=== PATIENT | female | born 1975 | race Caucasian/White ===

== ENCOUNTER 2017-08-03 15:10 | Outpatient (CLI) | payer OTHER | END 2017-08-03 15:11 | disposition home or self-care (01) | LOC: BICULT 15:10 | PROVIDERS: ATTEND Specialist | DX: E03.9 Hypothyroidism, unspecified (principal); R94.6 Abnormal results of thyroid function studies; E04.1 Nontoxic single thyroid nodule; Z85.71 Personal history of Hodgkin lymphoma | CPT/HCPCS: 76536 ==

== ENCOUNTER 2018-09-18 07:24 | Outpatient (CLI) | payer OTHER ==
--- NOTE | 2018-09-18 07:46 | ULT ---
GALLBLADDER ULTRASOUND: HISTORY: Right upper quadrant abdominal pain FINDINGS: The liver demonstrates homogeneous echotexture without focal mass or intrahepatic biliary ductal dila tation. The patient is status postcholecystectomy. The right kidney and pancreas are normal. The common duct [id number] in diameter. No free fluid is seen in the Penaloza's pouch. IMPRESSION: Status post cholecystectomy, otherwise unremarkable exam
== END 2018-09-18 07:25 | disposition home or self-care (01) ==
LOC: BICULT 07:24
PROVIDERS: ATTEND Family Medicine
DX: R79.89 Other specified abnormal findings of blood chemistry (principal); Z90.49 Acquired absence of other specified parts of digestive tract
CPT/HCPCS: 76705

== ENCOUNTER 2018-10-02 07:45 | Outpatient (CLI) | payer OTHER ==
--- NOTE | 2018-10-02 08:13 | MMO ---
Bilateral MAMMO Bilat Screen [facility]. CLINICAL HISTORY: Patient is 42 years old and is seen for screening. The patient has no family history of breast cancer. The patient has a history of hodgkin's disease at age 16. VIEWS: The views performed were: bilateral craniocaudal with tomosynthesis and bilateral mediolateral oblique with tomosynthesis. FILMS COMPARED: The present examination has been compared to prior imaging studies performed at [facility] on 11/18/2015 and 09/30/2017. MAMMOGRAM FINDINGS: There are scattered fibroglandular densities. There are no suspicious masses, suspicious calcifications, or new areas of architectural distortion. IMPRESSION: THERE IS NO MAMMOGRAPHIC EVIDENCE OF MALIGNANCY. A ROUTINE FOLLOW-UP MAMMOGRAM IN 1 YEAR IS RECOMMENDED. THE RESULTS OF THIS EXAM WERE SENT TO THE PATIENT. ACR BI-RADS Category 1 - Negative MAMMOGRAPHY NOTE: 1. A negative mammogram report should not delay a biopsy if a dominant of clinically suspicious mass is present. 2. Approximately 10% to 15% of breast cancers are not detected by mammography. 3. Adenosis and dense breasts may obscure an underlying neoplasm. Reported by: KIRT WALLACE MD Electonically Signed: [id number]
== END 2018-10-02 07:46 | disposition home or self-care (01) ==
LOC: BICMAMMO 07:45
PROVIDERS: ATTEND Family Medicine
DX: Z12.31 Encounter for screening mammogram for malignant neoplasm of breast (principal); Z85.71 Personal history of Hodgkin lymphoma
CPT/HCPCS: 77063; 77067

== ENCOUNTER 2018-10-09 12:42 | Emergency (ER) | payer OTHER ==
[2018-10-09 13:39] LABS: #Basophils 0.1 thou/uL (0.0-0.2); #Eosinphils 0.2 thou/uL (0.0-0.7); #Lymphocytes 2.5 thou/uL (1.20-3.40); #Monocytes 0.7 thou/uL (0.11-0.59); #Neutrophils 7.1 thou/uL (1.40-6.50); %Basophils 0.7 % (0.0-1.0); %Eosinophils 2.2 % (0.0-10.0); %Lymphocytes 23.9 % (21.0-51.0); %Monocytes 6.3 % (0.0-10.0); Hemoglobin 13.5 g/dL (12.0-16.0); Mean Corpuscular HGB CONC 34.1 g/dL (32.0-36.0); Mean Platelet Volume 7.4 fL (7.4-10.4); Platelet Count 313 thou/uL (130-400); RBC Distribution Width 11.8 % (11.5-14.5); Red Blood Cell (RBC) Count 4.35 mill/uL (4.20-5.40); White Blood Cell (WBC) Count 10.5 thou/uL (4.8-10.8)
[2018-10-09 14:09] LABS: ALT (SGPT) 30 U/L (8-55); AST (SGOT) 37 U/L (5-34); Albumin 4.9 g/dL (3.5-5.0); Alkaline Phosphatase 87 U/L (40-150); Anion Gap 14 mmol/L (10-20); BUN (Urea Nitrogen) 16 mg/dL (7.0-18.7); Bilirubin, Total 0.4 mg/dL (0.2-1.2); Calc. Creatinine Clearance 0 mL/min (70-130); Calcium 10.3 mg/dL (7.8-10.44); Carbon Dioxide 24 mmol/L (22-29); Chloride 102 mmol/L (98-107); Estimated GFR-MDRD 73; Globulin 3.1 g/dL (2.4-3.5); Glucose 85 mg/dL (70-105); Potassium 3.7 mmol/L (3.5-5.1); Sodium 136 mmol/L (136-145)
== END 2018-10-09 15:14 | disposition home or self-care (01) ==
LOC: ERS 12:42
DX: R00.2 Palpitations (principal)
CPT/HCPCS: 36415; 80053; 84443; 85025; 93005

== ENCOUNTER 2019-11-14 10:34 | Outpatient (CLI) | payer OTHER ==
--- NOTE | 2019-11-14 13:30 | MRI ---
MRI of thecervical spine with and without contrast: 11/14/2019 COMPARISON:None available HISTORY:Neck pain, cervical pain, prior thyroid surgery TECHNIQUE: Multiplanar multisequence MR imaging of thecervical spine with and without contrast Findings:The sagittal STIR imaging demonstrates no focal area of osseous marrow edema. There is minim al increased STIR signal in the region of the interspinous ligaments anteriorly at C3-4, C4-5, and C5-6. There is a focal area of increased T2 signal within the subcutaneous fat posteriorly at the C5- 6 axial level. No significant anterolisthesis or retrolisthesis is noted within the cervical spine. There is degener ative change at the atlantoaxial interspace. C2-3: No significant central canal or neural foraminal stenosis. Intervertebral disc height and signa l intensity appears within normal limits. C3-4: There is minimal disc bulge and mild disc space narrowing. There is mild right-sided uncoverteb ral osteophyte formation. Mild right neural foraminal stenosis. No central canal or left neural foraminal stenosis. C4-5: No significant central canal or neural foraminal stenosis C5-6: Disc space narrowing and disc desiccation noted with mild disc bulge. There is a disc herniatio n in the foraminal region on the right with possible associated mild osteophyte formation causing moderate/severe right neural foraminal stenosis exerting mass effect on the exiting right nerve root. No significant central canal or left neural foraminal stenosis at C5-6. C6-7: No significant central canal or neural foraminal stenosis C7-T1: No significant central canal or neural foraminal stenosis. No focal area of abnormal signal intensity is identified within the cervical cord. Postcontrast imaging demonstrates no abnormal enhancement involving the contents of the thecal sac, i christelle osseous structures, or the intervertebral discs. IMPRESSION:Multilevel cervical spine degenerative change, most prominent at C5-6 on the right. Mild i ncreased STIR signal within the interspinous ligaments posteriorly may reflect prior injury or prior injections. Clinical correlation required.
== END 2019-11-14 10:35 | disposition home or self-care (01) ==
LOC: SCSMRI 10:34
DX: M54.2 Cervicalgia (principal); M47.812 Spondylosis without myelopathy or radiculopathy, cervical region
CPT/HCPCS: 72156

== ENCOUNTER 2020-04-21 13:22 | Outpatient (CLI) | payer OTHER | END 2020-04-21 13:23 | disposition home or self-care (01) | LOC: ULT 13:22 | PROVIDERS: ATTEND Family Medicine | DX: I08.2 Rheumatic disorders of both aortic and tricuspid valves (principal) | CPT/HCPCS: 93306 ==

== ENCOUNTER 2020-07-24 15:22 | Outpatient (CLI) | payer OTHER | END 2020-07-24 15:23 | disposition home or self-care (01) | LOC: BICRAD 15:22 | PROVIDERS: ATTEND Obstetrics & Gynecology | DX: S69.92XA Unspecified injury of left wrist, hand and finger(s), initial encounter (principal); R93.6 Abnormal findings on diagnostic imaging of limbs ==

== ENCOUNTER 2021-01-09 06:48 | Outpatient (CLI) | payer OTHER | END 2021-01-09 06:49 | disposition home or self-care (01) | LOC: BICMRI 06:48 | PROVIDERS: ATTEND Student in an Organized Health Care Education/Training Program | DX: M25.532 Pain in left wrist (principal); G89.29 Other chronic pain; M67.80 Other specified disorders of synovium and tendon, unspecified site ==

== ENCOUNTER 2021-01-20 14:34 | Outpatient (CLI) | payer OTHER | END 2021-01-20 14:35 | disposition home or self-care (01) | LOC: BICMAMMO 14:34 | PROVIDERS: ATTEND Family Medicine | DX: Z12.31 Encounter for screening mammogram for malignant neoplasm of breast (principal); Z85.71 Personal history of Hodgkin lymphoma | CPT/HCPCS: 77063; 77067 ==

== ENCOUNTER 2021-02-04 10:59 | Day surgery (SDC) | payer OTHER ==
[2021-02-02 16:29] VITALS: BMI 27.4
[2021-02-04] MEDS ORDERED: ceFAZolin 2 GM/DEX 5% 100 ML BAG ONE (13:29)
[2021-02-04 13:32] LABS: Anion Gap 18 mmol/L (10-20); BUN (Urea Nitrogen) 18 mg/dL (7.0-18.7); Calc. Creatinine Clearance 105 mL/min (70-130); Calcium 9.4 mg/dL (7.8-10.44); Carbon Dioxide 15 mmol/L (22-29); Chloride 107 mmol/L (98-107); Glucose 87 mg/dL (70-105); Potassium 6.1 mmol/L (3.5-5.1); Sodium 134 mmol/L (136-145)
[2021-02-04] MEDS ORDERED: Bacitracin Zinc Ointment 30 gm TUBE ONE (13:35)
[2021-02-04] MEDS ORDERED: Lidocaine 1% w/Epinephrine 1:100K 20 ML VIAL ONE (13:35)
[2021-02-04] MEDS ORDERED: Bupivacaine PF 0.5% 30 ML VIAL ONE (13:35)
[2021-02-04] MEDS ORDERED: EPINEPHrine 1 MG/ML AMP ONE (13:35)
[2021-02-04] MEDS ORDERED: Neomycin-Polymyxin 1 ML AMP ONE (13:35)
[2021-02-04] MEDS ORDERED: Fentanyl 100 MCG/2 ML VIAL ONE (13:36)
[2021-02-04] MEDS ORDERED: Midazolam HCl 2 mg/2 ml Vial ONE (13:42)
[2021-02-04] MEDS ORDERED: Dexamethasone 20 MG/5 ML VIAL ONE (14:10)
[2021-02-04] MEDS ORDERED: PROPOFOL 200 MG/20 ML VIAL ONE (14:10)
[2021-02-04] MEDS ORDERED: Metoclopramide HCl 10 MG/2 ML VIAL ONE (14:10)
[2021-02-04] MEDS ORDERED: Lidocaine 1% PF 5 ML VIAL ONE (14:10)
[2021-02-04] MEDS ORDERED: Ketorolac Tromethamine 30 MG/ML VIAL ONE (14:10)
[2021-02-04] MEDS ORDERED: Phenylephrine 10 MG/ML VIAL ONE (14:10)
[2021-02-04] MEDS ORDERED: Ondansetron PF 4 MG/2 ML Vial ONE (14:10)
== END 2021-02-04 16:45 | disposition home or self-care (01) ==
LOC: SDC 10:59
PROVIDERS: ATTEND Surgery Surgery of the Hand
PROC: 0RBP4ZZ Excision of Left Wrist Joint, Percutaneous Endoscopic Approach (ICD-10-PCS; principal; 2021-02-04)
DX: S63.592A Other specified sprain of left wrist, initial encounter (principal); M65.88 Other synovitis and tenosynovitis, other site; E89.0 Postprocedural hypothyroidism; M19.90 Unspecified osteoarthritis, unspecified site; L40.9 Psoriasis, unspecified; Z87.891 Personal history of nicotine dependence; Z79.899 Other long term (current) drug therapy; W19.XXXA Unspecified fall, initial encounter
CPT/HCPCS: 80048; J0171; J1100; J1885; J2250; J2370; J2405; J2704; J2765; J3010; S0020